=== PATIENT | female | born 1945 | race Caucasian/White ===

== ENCOUNTER 2021-04-17 16:52 | Inpatient (IN) | payer MEDICARE, OTHER ==
[~2021-04-17] VITALS: Ht 165.1 cm; Wt 64.4 kg
[2021-04-17 18:09] LABS: HEMOGLOBIN 10.2 gm/dl (12.3-15.3); RED BLOOD COUNT 3.32 M/UL (4.00-5.10); WHITE BLOOD COUNT 9.3 K/UL (4.5-11.0)
[2021-04-17] MEDS ORDERED: DESYREL 50 MG T50 MG PO (19:59)
[2021-04-17] MEDS ORDERED: LOSARTAN POTAS100 MG PO (19:59)
[2021-04-17] MEDS ORDERED: PROZAC 10 MG CA10 MG PO (19:59)
[2021-04-17] MEDS ORDERED: ESOMEPRAZOLE MA40 MG PO (20:00)
[2021-04-17] MEDS ORDERED: ATORVASTATIN CA20 MG PO (20:00)
[2021-04-17] MEDS ORDERED: DITROPAN 5 MG TA5 MG PO (20:00)
[2021-04-17] MEDS ORDERED: ALENDRONATE SOD35 MG PO (20:01)
[2021-04-17] MEDS ORDERED: PROZAC10 MG PO (20:02)
[2021-04-17] MEDS ORDERED: KLONOPIN TAB 00.5 MG PO (20:02)
[2021-04-17] MEDS ORDERED: FENOFIBRATE134 MG PO (20:03)
[2021-04-17] MEDS ORDERED: VITAMIN D31250 MCG PO (20:03)
[2021-04-17] MEDS ORDERED: GLUCOPHAGE 500500 MG PO (20:04)
[2021-04-17] MEDS ORDERED: METFORMIN HCL1000 M1 PO (20:04)
[2021-04-18 03:05] LABS: HEMOGLOBIN 10.4 gm/dl (12.3-15.3); RED BLOOD COUNT 3.48 M/UL (4.00-5.10)
[2021-04-18 03:10] LABS: WHITE BLOOD COUNT 6.8 K/UL (4.5-11.0)
[2021-04-18] MEDS ORDERED: MECLIZINE HCL25 MG PO (09:53)
[2021-04-19 04:32] LABS: HEMOGLOBIN 8.9 gm/dl (12.3-15.3); WHITE BLOOD COUNT 8.1 K/UL (4.5-11.0)
[2021-04-19 04:49] LABS: RED BLOOD COUNT 2.94 M/UL (4.00-5.10)
[2021-04-20 04:10] LABS: HEMOGLOBIN 7.2 gm/dl (12.3-15.3)
[2021-04-20 04:11] LABS: RED BLOOD COUNT 2.35 M/UL (4.00-5.10)
[2021-04-20 12:32] LABS: HEMOGLOBIN 7.6 gm/dl (12.3-15.3)
[2021-04-20] MEDS ORDERED: ENOXAPARIN40 MG/0.4 SC ×2 (13:58→14:11)
[2021-04-20] MEDS ORDERED: PERCOCET 7.5-31 EACH PO (14:11)
[2021-04-20] MEDS ORDERED: FERROUS GLUCON324 M1 PO (14:18)
[2021-04-20] MEDS ORDERED: ZOFRAN 4 MG TAB4 MG PO (14:22)
[2021-04-20] MEDS ORDERED: HYDRALAZINE HCL10 MG PO (14:26)
== END 2021-04-20 19:50 | DRG 481 ==
LOC: ER1 16:52 → CDU 18:25 → M/S 18:25
PROVIDERS: Emergency Medicine; Internal Medicine; Orthopaedic Surgery; ADMIT Internal Medicine
PROC: 0QS706Z Reposition Left Upper Femur with Intramedullary Internal Fixation Device, Open Approach (ICD-10-PCS; principal; 2021-04-18 15:45)
DX: S72.142A Displaced intertrochanteric fracture of left femur, initial encounter for closed fracture (principal); D62 Acute posthemorrhagic anemia; I10 Essential (primary) hypertension; E11.9 Type 2 diabetes mellitus without complications; Z20.822 Contact with and (suspected) exposure to COVID-19; E78.5 Hyperlipidemia, unspecified; F41.9 Anxiety disorder, unspecified; F32.A Depression, unspecified; G43.909 Migraine, unspecified, not intractable, without status migrainosus; W01.0XXA Fall on same level from slipping, tripping and stumbling without subsequent striking against object, initial encounter; Z98.84 Bariatric surgery status; Z90.710 Acquired absence of both cervix and uterus; Z88.0 Allergy status to penicillin; Z88.8 Allergy status to other drugs, medicaments and biological substances; Z88.6 Allergy status to analgesic agent; Z79.84 Long term (current) use of oral hypoglycemic drugs; Z82.49 Family history of ischemic heart disease and other diseases of the circulatory system; Z98.890 Other specified postprocedural states; Z79.899 Other long term (current) drug therapy
CPT/HCPCS: 36415; 71045; 73502; 73552; 73700; 76000; 80048; 80053; 81001; 82550; 82553; 82962; 83540; 83550; 84484; 85014; 85018; 85025; 85027; 85610; 86850; 86900; 86901; 93005; 96374; 96376; 97161; 97166; 97530; 97530-GP-CQ; 99285; C1713; J1100; J1650; J2001; J2270; J2405; J2704; J2795; J3010; J7050; J7120; U0002